=== PATIENT | female | born 1995 | race Caucasian/White ===

== ENCOUNTER 2019-06-04 13:44 | Emergency (ER) | payer OTHER | END 2019-06-04 15:35 | disposition home or self-care (01) | LOC: JERFT 13:44 ==

== ENCOUNTER 2019-09-25 16:33 | Emergency (ER) | payer OTHER ==
[2019-09-25 16:41] VITALS: BP 128/70; PULSE 77; TEMP 98.5; BMI 27.3
[2019-09-25] MEDS ORDERED: LIDOCAINE HCL 1%, 10 MG/ML (20ML VIAL) ONE (19:35)
--- NOTE | 2019-09-25 20:01 | PDOC ---
History of Present Illness - General Chief Complaint: Abscess Boil Stated Complaint: CYST REMOVAL Time Seen by Provider: 09/25/19 18:15 History Source: Patient Exam Limitations: No Limitations Past History - Past Medical History Allergies/Adverse Reactions: Allergies Allergy/AdvReac Type Severity Reaction Status Date / Time No Known Allergies Allergy Verified 09/25/19 16:41 COPD: No - Psycho Social/Smoking Cessation Hx Smoking History: Never smoked Hx Alcohol Use: No Drug/Substance Use Hx: No *Physical Exam - Vital Signs Last Vital Signs Temp Pulse Resp BP Pulse Ox 98.5 F 77 18 128/70 100 09/25/19 16:38 09/25/19 16:38 09/25/19 16:38 09/25/19 16:38 09/25/19 16:38 - Physical Exam General Appearance: No: Apparent Distress Female Pelvic Exam: positive: other (Large R bartholin cyst, no erythema, no streaking) Neurologic: positive: Alert Procedures - Incision and Drainage I&D Site: Right: Bartholin Betadine cleansed: Yes Anesthesia: 1% Lidocaine Blade Size: 11 Attempts: 1 Plain Packing: No Complications: none Medical Decision Making - Medical Decision Making 24 y/o F with no sig pmh presents with R bartholin cyst which she noted beginning of August, eventually getting bigger. Patient had this drained back in 05/2019 as well. 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 Denies fever, other complaints. R bartholin abscess- drained, word catheter placed stable for dc 09/25/19 19:56 Discharge - Discharge Information Problems reviewed: Yes Clinical Impression/Diagnosis: Bartholin's gland abscess Condition: Stable Disposition: HOME - Admission No - Additional Discharge Information Prescription Drug Monitoring Program (I-STOP) results: I-STOP not reviewed - Follow up/Referral - Patient Discharge Instructions Patient Printed Discharge Instructions: DI for Bartholin Gland Cyst Additional Instructions: Thank you for choosing [facility]. It was a pleasure taking care of you. You may take Motrin 600 mg every 6 hours by mouth as needed for mild to moderate pain. Take Motrin with food. You will need to keep the Word catheter in for 4-6 weeks Please follow-up with your EXPLOSIVE ORDNANCE DISPOSAL MANAGER doctor in 1 week Return to the Emergency Department if your symptoms worsen or persist, you have fever, redness, streaking or other concerning symptoms. - Post Discharge Activity
== END 2019-09-25 20:30 | disposition home or self-care (01) ==
LOC: JER 16:33
PROC: 0U9L00Z Drainage of Vestibular Gland with Drainage Device, Open Approach (ICD-10-PCS; principal; 2019-09-25)
DX: N75.1 Abscess of Bartholin's gland (principal)
CPT/HCPCS: 99282-25

== ENCOUNTER 2019-11-08 19:21 | Emergency (ER) | payer OTHER ==
[2019-11-08 19:34] VITALS: TEMP 98.5; BMI 27.0
--- NOTE | 2019-11-08 19:37 | PDOC ---
History of Present Illness - General Chief Complaint: Vaginal Bleeding Stated Complaint: PELVICK PAIN Time Seen by Provider: 11/08/19 19:37 History Source: Patient Exam Limitations: No Limitations - History of Present Illness Initial Comments: 11/08/19 19:51 24yF w PMHx bartholin cyst presenting w sudden onset mild intermittent suprapubic discomfort, urinary urgency, and gross hematuria starting 2hrs ago. Not on anticoagulation. Didn't take any meds. Recently completed menstrual period, has IUD. Denies fever, nausea/vomiting, chest pain/SOB. OBGYN - [facility] / Dr Lobo Past History - Past Medical History Allergies/Adverse Reactions: Allergies Allergy/AdvReac Type Severity Reaction Status Date / Time No Known Allergies Allergy Verified 09/25/19 16:41 Home Medications: Ambulatory Orders Cephalexin [Keflex] 500 mg PO QID 5 Days #20 capsule 11/08/19 COPD: No - Psycho Social/Smoking Cessation Hx Smoking History: Never smoked Hx Alcohol Use: No Drug/Substance Use Hx: No Review of Systems - Review of Systems Constitutional: No: Chills, Fever HEENTM: No: Eye Pain, Blurred Vision, Nose Pain, Throat Pain, Mouth Pain Respiratory: No: Cough, Shortness of Breath Cardiac (ROS): No: Chest Pain, Palpitations, Syncope ABD/GI: No: Abdominal Distended, Constipated, Diarrhea, Nausea, Vomiting : Yes: Frequency, Hematuria. No: Burning Musculoskeletal: No: Back Pain, Joint Pain Integumentary: No: Bruising, Flushing, Lesions Neurological: No: Headache, Seizure, Tingling Psychiatric: No: Anxiety, Depression, Stressors Endocrine: No: Excessive Sweating, Flushing, Intolerance to Cold, Intolerance to Heat Hematologic/Lymphatic: No: Anemia, Blood Clots *Physical Exam - Vital Signs Last Vital Signs Temp Pulse Resp BP Pulse Ox 98.5 F 86 19 125/66 100 11/08/19 19:31 11/08/19 19:31 11/08/19 19:31 11/08/19 19:31 11/08/19 19:31 - Physical Exam General Appearance: Yes: Nourished, Appropriately Dressed. No: Apparent Distress HEENT: positive: EOMI, CHAVO, Normal Voice, Hearing Grossly Normal. negative: Scleral Icterus (R), Scleral Icterus (L), Nasal Congestion, Rhinorrhea Respiratory/Chest: positive: Lungs Clear, Normal Breath Sounds. negative: Chest Tender, Respiratory Distress, Crackles, Rales, Rhonchi, Stridor, Wheezing Cardiovascular: positive: Regular Rhythm, Regular Rate, S1, S2. negative: Edema , Murmur Female Pelvic Exam: positive: normal external exam, cervical os closed, normal adnexa, discharge (white physiologic). negative: CMT, adnexal tenderness, vaginal bleeding Gastrointestinal/Abdominal: positive: Normal Bowel Sounds, Tender (mild discomfort suprapubic), Flat, Soft. negative: Organomegaly Musculoskeletal: negative: CVA Tenderness (R), CVA Tenderness (L) Extremity: positive: Normal Capillary Refill Integumentary: positive: Normal Color Neurologic: positive: nuclear medical technologist II-XII NML intact, Fully Oriented, Alert, Normal Response, Responsive. negative: Sensory Deficit, Confused, Disoriented ED Treatment Course - LABORATORY CBC & Chemistry Diagram: 11/08/19 20:06 11/08/19 19:47 Medical Decision Making - Medical Decision Making 11/08/19 19:53 pelvic exam - no bleeding in vaginal vault, closed cervical os, white physiologic discharge, no cervical/adnexal tenderness --- 24yF w PMHx bartholin cyst presenting w 2hrs sudden onset intermittent suprapubic discomfort, urinary urgency, and gross hematuria d/t hemorrhagic cystitis. Not , low concern for kidney stone (no flank pain) Given tylenol DC home w keflex and PCP f/u Discharge - Discharge Information Problems reviewed: Yes Clinical Impression/Diagnosis: Hemorrhagic cystitis Condition: Improved Disposition: HOME - Admission No - Additional Discharge Information Prescriptions: Cephalexin [Keflex] 500 mg PO QID 5 Days #20 capsule - Follow up/Referral - Patient Discharge Instructions Patient Printed Discharge Instructions: DI for Hemorrhagic Cystitis Additional Instructions: You have a urine infection. Take the prescribed Keflex as directed for your infection. Take tylenol or ibuprofen if you have pain Follow up with your primary care doctor Come back to the ED if you have worsening pain, lose consciousness, or fevers. - Post Discharge Activity
--- NOTE | 2019-11-08 19:44 | PDOC ---
Documentation entered by Fany Lowe SCRIBE, acting as scribe for Renu Gill MD. Renu Gill MD: This documentation has been prepared by the Chrissy valdez Sammi, SCRIBE, under my direction and personally reviewed by me in its entirety. I confirm that the documentation accurately reflects all work, treatment, procedures, and medical decision making performed by me. Attending Attestation - Resident Resident Name: [email or web address] - ED Attending Attestation I have performed the following: I have examined & evaluated the patient, The case was reviewed & discussed with the resident, I agree w/resident's findings & plan, Exceptions are as noted - HPI HPI: 11/08/19 19:42 The patient is a 24 year old female, who presents to the ED for evaluation of sudden onset of 2 hours suprapubic pain with associated hematuria and urinary urgency. Denies history of kidney stones. Just completed menstrual cycle, has IUD. 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: [facility] - Physicial Exam PE: 11/08/19 20:07 A 24-year-old female presents after having 2 hours of dysuria, hematuria and suprapubic cramping 11/08/19 20:07 wnwd 24 yo female in no distress head ncat neck supple lungs cta b/l cvs [id number] abd no rebound,no guarding please refer to Dr Lemus's exam -he reports vaginal bleeding neuro axox3 ,ambulatory - Medical Decision Making 11/08/19 19:44 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 is [facility] Past medical history Bartholin cyst abscesses 11/08/19 21:04 Negative test UA shows that hemorrhagic cystitis and she will be started on antibiotics She does not have any flank pain
[2019-11-08] MEDS ORDERED: ACETAMINOPHEN 500 MG TABLET (FP) PO ONE (19:51)
[2019-11-08 20:12] LABS: BASO % 0.1 % (0-2.0); HEMATOCRIT 38.5 % (32.4-45.2); HEMOGLOBIN 12.8 GM/dL (10.7-15.3); LYMPH % 16.2 % (8-40); MCH 29.9 pg (25.7-33.7); MCHC 33.2 g/dl (32.0-36.0); MEAN PLT VOLUME 8.6 fl (7.5-11.1); MONO % 7.7 % (3.8-10.2); PLATELET COUNT 251 K/MM3 (134-434); RBC 4.27 M/mm3 (3.60-5.2); WHITE BLOOD COUNT 11.9 K/mm3 (4.0-10.0)
[2019-11-08 20:17] LABS: URINE APPEARANCE TURBID; URINE BILIRUBIN 1+ (NEGATIVE); URINE COLOR RED; URINE GLUCOSE (UA) NEGATIVE (NEGATIVE); URINE KETONE NEGATIVE (NEGATIVE); URINE LEUK ESTERASE 2+ (NEGATIVE); URINE NITRITE POSITIVE (NEGATIVE); URINE PROTEIN 4+ (NEGATIVE); URINE UROBILINOGEN 0.2 mg/dL (0.2-1.0)
[2019-11-08 20:32] LABS: CALCIUM 9.1 mg/dL (8.5-10.1); CREATININE 0.7 mg/dL (0.55-1.3); POTASSIUM 3.7 mmol/L (3.5-5.1)
[2019-11-08 20:32] LABS: INR 1.05 (0.83-1.09); PROTHROMBIN TIME (PATIENT) 12.4 SEC (9.7-13.0)
[2019-11-08] MEDS ORDERED: ACETAMINOPHEN 325 MG TABLET (FP) ONE (20:33)
[2019-11-08 21:02] LABS: EPI CELLS 0 /HPF (0-5/HPF); HYALINE CASTS 0 /lpf (0-8); URINE BACTERIA FEW /hpf (NEGATIVE); URINE RBC >100 /hpf (0-4); YEAST NONE SEEN (NEGATIVE)
[2019-11-08 21:42] VITALS: BP 122/80; PULSE 84
== END 2019-11-08 21:43 | disposition home or self-care (01) ==
LOC: JER 19:21
DX: N30.01 Acute cystitis with hematuria (principal)
CPT/HCPCS: 36415; 80048; 81003; 84703; 85025; 85610; 86850; 86900; 86901; 87086; 87186; 99283-25

== ENCOUNTER 2021-06-20 22:37 | Emergency (ER) | payer OTHER ==
[2021-06-20 22:54] VITALS: BP 115/78; PULSE 93; TEMP 99.7; BMI 26.6
== END 2021-06-21 01:08 | disposition home or self-care (01) ==
LOC: JER 22:37
PROC: 0H99XZZ Drainage of Perineum Skin, External Approach (ICD-10-PCS; principal; 2021-06-20)
DX: N75.0 Cyst of Bartholin's gland (principal)
CPT/HCPCS: 99283-25

== ENCOUNTER 2022-07-16 19:15 | Emergency (ER) | payer OTHER ==
[2022-07-16 19:34] VITALS: BP 112/75; PULSE 78; RESP 19; TEMP 97.8; BMI 28.0
== END 2022-07-16 21:55 | disposition home or self-care (01) ==
LOC: JERFT 19:15
PROC: 0U9MXZZ Drainage of Vulva, External Approach (ICD-10-PCS; principal; 2022-07-16)
DX: N75.1 Abscess of Bartholin's gland (principal)
CPT/HCPCS: 87070; 87077; 87205; 99282-25